=== PATIENT | male | born 1970 | race African-American/Black ===

== ENCOUNTER 2020-12-16 12:16 | Outpatient (CLI) | payer OTHER, SELFPAY ==
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
--- NOTE | ~2020-12-16 | XR_ITS ---
XR lumbar spine 2-3V DATE: 12/16/2020 12:46 INDICATION: Back pain, radiculopathy. TECHNIQUE: AP, lateral, coned lateral lumbosacral views COMPARISON: None FINDINGS: Normal alignment of the lumbar spine. No fracture or bone destruction or spondylolisthesis. The lumbar pedicles are intact. Minimal degenerative spurring and slight loss of height at L2-3 consistent with mild degenerative dis c disease. Minimal degenerative spurring but preservation of intervertebral disc space at L3-4. Mild to moderate loss of interspace height. And mild spurring at L4-5. The sacroiliac joints are intact. IMPRESSION: Moderate to moderate degenerative disc disease Reviewed, dictated and finalized at location A.
--- NOTE | ~2020-12-16 | XR_ITS ---
XR foot RT min 3V DATE: 12/16/2020 12:47 INDICATION: Right foot pain. No injury. TECHNIQUE: 4 views COMPARISON: None FINDINGS: There is mild osteoarthritis at the first metatarsophalangeal joint. No recent fracture or dislocation, periosteal reaction or bone destruction is detected. IMPRESSION: Mild osteoarthritis at first metatarsophalangeal joint Reviewed, dictated and finalized at location A.
[2020-12-16 13:52] LABS: Basophils Percent Auto 0.4 % (0.2-1.2); Eosinophils Absolute Auto 0.2 K/mm3 (0-0.3); Eosinophils Percent Auto 2.8 % (0-4.4); Hematocrit 46.1 % (42.0-52.0); Hemoglobin 15.5 g/dL (14.0-18.0); Immature Granulocyte Absolute 0.01 K/mm3 (0.00-0.031); Immature Granulocyte Percent A 0.2 % (0-0.5); Lymphocytes Absolute Auto 1.88 K/mm3 (0.9-3.2); Lymphocytes Percent Auto 35.5 % (18.3-44.2); Mean Corpuscular HGB Conc 33.6 g/dl (32-36); Mean Corpuscular Volume 95.2 fl (80-100); Mean Platelet Volume 9.1 fl (7.4-10.4); Monocytes Absolute Auto 0.5 K/mm3 (0.1-0.6); Monocytes Percent Auto 9.3 % (2.6-8.5); Neutrophils Absolute Auto 2.7 K/mm3 (1.3-6.7); Neutrophils Percent Auto 51.8 % (45.5-73.1); Platelet Count Result 232 k/mm3 (150-375); Red Blood Count 4.84 M/mm3 (4.6-6.20); Red Cell Distribution Width 16.3 % (11.5-14.5); White Blood Count 5.3 K/mm3 (4.5-10.0)
[2020-12-16 15:11] LABS: Creatinine Urine 189.2 mg/dL
[2020-12-16 15:40] LABS: MALB Creatinine Ratio < 3.2 mg/g (0-30); Microalbumin Urine Random < 6.0 mg/L (0-16.7)
[2020-12-16 17:35] LABS: Alanine Aminotransferase 28 U/L (4-50); Albumin Level 4.8 g/dL (3.5-5.1); Alkaline Phosphatase 58 U/L (38-126); Anion Gap 9 mmol/L (8-16); Aspartate Amino Transferase 28 U/L (17-59); Bilirubin,Total 0.5 mg/dL (0.2-1.3); Blood Urea Nitrogen 14 mg/dL (9-20); Calcium 9.4 mg/dL (8.4-10.2); Carbon Dioxide 24 mmol/L (22-30); Chloride 108 mmol/L (98-107); Cholesterol 285 mg/dL (0-200); Estimated Glomerular Filt Rate > 60; Glucose 94 mg/dL (65-110); HDL Direct 57 mg/dL; Potassium 4.2 mmol/L (3.4-5.0); Sodium 141 mmol/L (137-145); Triglycerides 113 mg/dL (<150)
[2020-12-16 17:48] LABS: LDL Cholesterol Direct 192 mg/dL
[2020-12-16 18:08] LABS: Prostate Specific Antigen 0.4 ng/mL (< OR = 4.0)
== END 2020-12-16 12:17 | disposition home or self-care (01) ==
PROVIDERS: PCP Internal Medicine; Visit Provider Internal Medicine
DX: Z12.5 Encounter for screening for malignant neoplasm of prostate (principal); E04.9 Nontoxic goiter, unspecified; F43.10 Post-traumatic stress disorder, unspecified; M54.16 Radiculopathy, lumbar region; Z87.898 Personal history of other specified conditions; M19.071 Primary osteoarthritis, right ankle and foot; M47.816 Spondylosis without myelopathy or radiculopathy, lumbar region
CPT/HCPCS: 36415; 72072; 72100; 73630; 80053; 80061; 82043; 84153; 84443; 85025; G0103

== ENCOUNTER 2020-12-19 14:54 | Outpatient (CLI) | payer OTHER, SELFPAY ==
[2020-12-19 16:45] LABS: HIV 1/2 Ab P24 Ag Result Negative (Negative)
[2020-12-22 06:59] LABS: Rapid Plasma Reagin Non-Reactive (NonReactive)
[2020-12-22 23:08] LABS: Herpes Simplex Type 1 DNA PCR Not Detected (Not Detected); Herpes Simplex Type 2 DNA PCR Not Detected (Not Detected)
== END 2020-12-19 14:55 | disposition home or self-care (01) ==
LOC: ANHLAB 14:55
PROVIDERS: PCP Internal Medicine; Visit Provider Internal Medicine
DX: Z11.3 Encounter for screening for infections with a predominantly sexual mode of transmission (principal)
CPT/HCPCS: 36415; 86592; 86703; 87529; G0432

== ENCOUNTER 2021-04-07 14:57 | Outpatient (CLI) | payer OTHER, SELFPAY ==
[2021-04-07 15:44] LABS: Cholesterol 309 mg/dL (0-200); HDL Direct 67 mg/dL; Triglycerides 145 mg/dL (<150)
[2021-04-07 15:55] LABS: LDL Cholesterol Direct 219 mg/dL
== END 2021-04-07 14:58 | disposition home or self-care (01) ==
LOC: ANHLAB 14:58
PROVIDERS: PCP Internal Medicine; Visit Provider Internal Medicine
DX: E78.2 Mixed hyperlipidemia (principal)
CPT/HCPCS: 36415; 80061

== ENCOUNTER 2021-07-13 14:35 | Outpatient (CLI) | payer OTHER, SELFPAY ==
[2021-07-13 15:27] LABS: Alanine Aminotransferase 54 U/L (4-50); Albumin Level 4.6 g/dL (3.5-5.1); Alkaline Phosphatase 55 U/L (38-126); Anion Gap 8 mmol/L (8-16); Aspartate Amino Transferase 39 U/L (17-59); Bilirubin,Total 0.7 mg/dL (0.2-1.3); Blood Urea Nitrogen 16 mg/dL (9-20); Calcium 9.5 mg/dL (8.4-10.2); Carbon Dioxide 25 mmol/L (22-30); Chloride 106 mmol/L (98-107); Cholesterol 212 mg/dL (0-200); Estimated Glomerular Filt Rate > 60; Glucose 103 mg/dL (65-110); HDL Direct 63 mg/dL; Potassium 4.2 mmol/L (3.4-5.0); Sodium 139 mmol/L (137-145); Triglycerides 89 mg/dL (<150)
[2021-07-13 15:38] LABS: LDL Cholesterol Direct 104 mg/dL
== END 2021-07-13 14:36 | disposition home or self-care (01) ==
LOC: ANHLAB 14:37
PROVIDERS: PCP Internal Medicine; Visit Provider Internal Medicine
DX: F43.10 Post-traumatic stress disorder, unspecified (principal); E78.2 Mixed hyperlipidemia
CPT/HCPCS: 36415; 80053; 80061

== ENCOUNTER 2022-02-15 16:34 | Outpatient (CLI) | payer OTHER, SELFPAY ==
[2022-02-15 17:53] LABS: Alanine Aminotransferase 43 U/L (6-50); Albumin Level 4.6 g/dL (3.5-5.1); Alkaline Phosphatase 49 U/L (38-126); Anion Gap 9 mmol/L (8-16); Aspartate Amino Transferase 35 U/L (17-59); Bilirubin,Total 0.9 mg/dL (0.2-1.3); Blood Urea Nitrogen 14 mg/dL (9-20); Carbon Dioxide 26 mmol/L (22-30); Chloride 107 mmol/L (98-107); Cholesterol 165 mg/dL (0-200); Estimated Glomerular Filt Rate > 60; Glucose 99 mg/dL (65-110); HDL Direct 46 mg/dL; Potassium 3.7 mmol/L (3.4-5.0); Sodium 142 mmol/L (137-145); Triglycerides 139 mg/dL (<150)
[2022-02-15 18:05] LABS: LDL Cholesterol Direct 79 mg/dL
== END 2022-02-15 16:35 | disposition home or self-care (01) ==
LOC: ANHLAB 16:35
PROVIDERS: PCP Internal Medicine; Visit Provider Nurse Practitioner
DX: E78.5 Hyperlipidemia, unspecified (principal)
CPT/HCPCS: 36415; 80053; 80061

== ENCOUNTER 2023-03-21 16:13 | Outpatient (CLI) | payer OTHER, SELFPAY ==
[2023-03-21 16:37] LABS: Hematocrit 42.3 % (42.0-52.0); Hemoglobin 14.4 g/dL (14.0-18.0); Mean Corpuscular Hemoglobin 31.9 pg (26-34); Mean Corpuscular Volume 93.8 fl (80-100); Mean Platelet Volume 8.7 fl (7.4-10.4); Platelet Count Result 204 k/mm3 (150-375); Red Blood Count 4.51 M/mm3 (4.6-6.20); Red Cell Distribution Width 14.4 % (11.5-14.5); White Blood Count 5.7 K/mm3 (4.5-10.0)
[2023-03-21 16:49] LABS: Alanine Aminotransferase 29 U/L (6-50); Albumin Level 4.3 g/dL (3.5-5.1); Alkaline Phosphatase 46 U/L (38-126); Anion Gap 9 mmol/L (8-16); Aspartate Amino Transferase 27 U/L (17-59); Bilirubin,Total 0.4 mg/dL (0.2-1.3); Blood Urea Nitrogen 16 mg/dL (9-20); Carbon Dioxide 23 mmol/L (22-30); Chloride 110 mmol/L (98-107); Estimated Glomerular Filt Rate > 60; Glucose 103 mg/dL (65-110); Potassium 3.9 mmol/L (3.4-5.0); Sodium 142 mmol/L (137-145)
[2023-03-21 17:19] LABS: Prostate Specific Antigen 0.4 ng/mL (< OR = 4.0)
== END 2023-03-21 16:14 | disposition home or self-care (01) ==
LOC: ANHLAB 16:15
PROVIDERS: PCP Nurse Practitioner Family; Visit Provider Family Medicine
DX: Z00.00 Encounter for general adult medical examination without abnormal findings (principal); E04.9 Nontoxic goiter, unspecified; E66.9 Obesity, unspecified; E78.5 Hyperlipidemia, unspecified; Z72.0 Tobacco use; Z87.898 Personal history of other specified conditions; Z87.09 Personal history of other diseases of the respiratory system
CPT/HCPCS: 36415; 80053; 84153; 84443; 85027; G0103

== ENCOUNTER 2023-04-16 18:08 | Emergency (ER) | payer OTHER, SELFPAY ==
[2023-04-16 18:11] VITALS: BP 151/86; PULSE 69; RESP 16; TEMP 36.8; O2SAT 99
--- NOTE | 2023-04-16 19:11 | PC.NURSE ---
Report given to Pattie PIEDRA, all questions answered
--- NOTE | 2023-04-16 19:19 | PC.NURSE ---
this rn assumed care of patient. this rn took patient report from adam maciel.
--- NOTE | 2023-04-16 19:51 | ED.EYEPROB ---
HPI - Eye Problem General Chief complaint: Eye Problems Stated complaint: eye vs screwdriver Time Seen by Provider: 04/16/23 19:24 Source: patient Mode of arrival: ambulatory Limitations: no limitations History of Present Illness HPI Narrative: This is a 52-year-old male that presents to the Emergency Department after an eye injury sustained this morning. Reports a screwdriver slipped and he hit his left eyelid. Has a small abrasion on the eyelid. He has had redness and mild discomfort to the left eye. Denies visual changes. Related Data Allergies Allergy/AdvReac Type Severity Reaction Status Date / Time No Known Allergies Allergy Verified 04/16/23 18:55 Review of Systems Review of Systems: CONSTITUTIONAL: Denies fever EYES: Reports redness Denies visual changes, or discharge. All systems reviewed & are unremarkable except as noted in HPI and below PMFSH Past Medical History Medical History Arthritis Jaw fracture Surgical History Surgical History History of ankle surgery (~2011) Family History Family History Sibling Hypertension Social History Social History Smoking packs per day: 0.5 Smoking cigarettes per day: 10.0 Years smoked: 20 Smoking pack-years: 10.00 Smoking status: Current every day smoker Second hand tobacco smoke exposure: Yes Alcohol intake: current Drinks per week: 3 Alcohol use details: rum, vodka, whisky social Substance use: never Substance use type: does not use Lack of Transportation: No Lack of Food: Sometimes True Current Housing: I Have Housing Concerned About Future Housing: No Difficulty Paying Gas/Electric Bills: YES Difficulty Paying for Meds: No Currently Unemployed: No Education: Trade/Vocational Certificate Difficulty w/ Childcare or Family Care: No Exam Narrative: GENERAL: Well-appearing, well-nourished, and in no acute distress. HEAD: Normocephalic, atraumatic. EYES: PERRLA and EOMI. Left conjunctival injection. Eyelid everted, no foreign bodies noted. Eye pressures are 10 bilaterally. No fluorescein stain uptake EXTREMITIES: Normal range of motion. No edema. SKIN: Warm, dry, no rash. NEURO: No focal deficits. Alert and oriented x3. PSYCH: Normal mood and affect Course Course Emergency Course: Patient updated on workup and agrees with plan of care Vital Signs Vital signs: Vital Signs Temperature 98.2 F 04/16/23 18:11 Pulse Rate 69 04/16/23 18:11 Respiratory Rate 16 04/16/23 18:11 Blood Pressure 151/86 H 04/16/23 18:11 Pulse Oximetry 99 04/16/23 18:11 Temperature 98.2 F 04/16/23 18:11 Pulse Rate 69 04/16/23 18:11 Respiratory Rate 16 04/16/23 18:11 Blood Pressure 151/86 H 04/16/23 18:11 Pulse Oximetry 99 04/16/23 18:11 MDM - Eye Problem MDM Narrative Medical decision making narrative: Patient presents to the ER after an injury to the left eye this morning. No vision changes. He does have poor vision bilaterally here, he did not have his glasses. His affected eye was actually better than unaffected. No fluorescein stain uptake on exam. His eye pressures are normal. No foreign bodies noted on exam. He does have conjunctival irritation and redness, without obvious abrasion. Will be started on topical antibiotic and was instructed to have close follow up with his eye doctor. He was given warnings to return to the ER Differential Diagnosis Differential diagnosis: Likely corneal abrasion, conjunctivitis and subconjunctival hemorrhage Critical Care Time Critical Care Time Critical Care Time: No Discharge Plan Discharge Clinical Impression: Injury of conjunctiva Qualifiers: Encounter type: initial encounter Laterality: left Qualified Code(s):
== END 2023-04-16 20:06 | disposition home or self-care (01) ==
PROVIDERS: Emergency Provider Physician Assistant; PCP Nurse Practitioner Family
DX: S05.02XA Injury of conjunctiva and corneal abrasion without foreign body, left eye, initial encounter (principal); M19.90 Unspecified osteoarthritis, unspecified site; F17.210 Nicotine dependence, cigarettes, uncomplicated; W27.0XXA Contact with workbench tool, initial encounter
CPT/HCPCS: 99283

== ENCOUNTER 2023-06-16 22:15 | Emergency (ER) | payer OTHER, SELFPAY ==
--- NOTE | ~2023-06-16 | CT_ITS ---
EXAMINATION: CT brain wo con DATE: 06/16/2023 23:36 INDICATION: Dizziness. TECHNIQUE: Computed tomography (CT) of the head was performed without intravenous contrast. The mA wa s adjusted according to patient size. Iterative reconstruction technique was employed. The dose-lengt h product was 605.33 mGy-cm. COMPARISON: None FINDINGS: There is no intracranial hemorrhage, acute infarction, or abnormal intracranial mass lesion . The ventricles are normal in size. There is cavum septum pellucidum and vergae. There is mild mucos al thickening in the paranasal sinuses. The mastoid air cells are normal. IMPRESSION: 1. Normal brain. Reviewed, dictated and finalized at location A. IMPRESSION: 1. Normal brain.
--- NOTE | 2023-06-16 22:21 | ECG_ITS ---
Measurements Intervals Hugo Rate: 64 P: 42 HI: 148 QRS: 3 QRSD: 98 T: 0 QT: 384 QTc: 398 Interpretive Statements SINUS RHYTHM WITH OCCASIONAL VENTRICULAR PREMATURE COMPLEXES NONSPECIFIC T-WAVE ABNORMALITY ABNORMAL ECG NO PREVIOUS ECG AVAILABLE FOR COMPARISON Electronically Signed On 06-17-2023 7:44:09 CDT by Humberto Drake M.D.
[2023-06-16 22:29] VITALS: BP 134/96; PULSE 67; RESP 15; O2SAT 100
[2023-06-16 22:36] LABS: Basophils Percent Auto 0.4 % (0.2-1.2); Eosinophils Absolute Auto 0.1 K/mm3 (0-0.3); Eosinophils Percent Auto 1.2 % (0-4.4); Hematocrit 46.1 % (42.0-52.0); Hemoglobin 15.3 g/dL (14.0-18.0); Immature Granulocyte Absolute 0.01 K/mm3 (0.00-0.031); Immature Granulocyte Percent A 0.2 % (0-0.5); Lymphocytes Absolute Auto 1.93 K/mm3 (0.9-3.2); Lymphocytes Percent Auto 34.2 % (18.3-44.2); Mean Corpuscular HGB Conc 33.2 g/dl (32-36); Mean Corpuscular Hemoglobin 31.2 pg (26-34); Mean Corpuscular Volume 93.9 fl (80-100); Mean Platelet Volume 9.1 fl (7.4-10.4); Monocytes Absolute Auto 0.6 K/mm3 (0.1-0.6); Monocytes Percent Auto 10.3 % (2.6-8.5); Neutrophils Percent Auto 53.7 % (45.5-73.1); Platelet Count Result 233 k/mm3 (150-375); Red Blood Count 4.91 M/mm3 (4.6-6.20); Red Cell Distribution Width 14.6 % (11.5-14.5); White Blood Count 5.7 K/mm3 (4.5-10.0)
[2023-06-16 22:50] LABS: Alanine Aminotransferase 30 U/L (6-50); Albumin Level 4.8 g/dL (3.5-5.1); Alkaline Phosphatase 46 U/L (38-126); Anion Gap 9 mmol/L (4-12); Aspartate Amino Transferase 27 U/L (17-59); Bilirubin,Total 0.8 mg/dL (0.2-1.3); Blood Urea Nitrogen 15 mg/dL (9-20); Carbon Dioxide 24 mmol/L (22-30); Chloride 106 mmol/L (98-107); Estimated CRCL calculation 90 ml/min; Estimated Glomerular Filt Rate > 60; Glucose 146 mg/dL (65-110); Potassium 3.5 mmol/L (3.4-5.0); Sodium 139 mmol/L (137-145)
--- NOTE | 2023-06-16 23:10 | ED.DIZZY ---
HPI - Dizziness General Chief Complaint: Dizziness Stated Complaint: dizzy Time Seen by Provider: 06/16/23 22:55 History of Present Illness HPI Narrative: Patient is a 53-year-old male who presents to the emergency department this evening complaining of dizziness. Patient denies any room spinning sensation but states that he feels lightheaded as if he was going to pass. Patient states symptoms started approximately 2 days ago and he denies any similar symptoms in the past. He denies any associated symptoms including headaches, focal weakness, numbness and O2. Patient is also denying any chest pain or shortness of breath, any nausea, vomiting, or abdominal pain, and denies any urinary symptoms including dysuria or hematuria. Patient denies any fevers or chills at home or any exposure to sick contacts. Patient states that he did recently started a new medication for blood pressure, amlodipine approximately 4 weeks ago and patient states that while taking that medication his blood pressure has been averaging 90s over 60s. Patient stopped taking his blood pressure medication yesterday for Otherwise he denies any recent life changes. Patient states that in the last 2 days he has also noticed that his heart rate has been running lower than usual. Ranging anywhere from 55-65 which is unusual for him because his heart rate is normally in the 70s. He denies any previous history of arrhythmias or any cardiovascular disease. Patient is currently denying any additional symptoms at this time. There are no other modifying, alleviating, or precipitating factors. Related Data Allergies Allergy/AdvReac Type Severity Reaction Status Date / Time No Known Allergies Allergy Verified 04/16/23 18:55 Review of Systems Review of Systems: All systems are reviewed and are negative unless stated otherwise in the HPI. [facility], [facility] Past Medical History Medical History Arthritis Jaw fracture Surgical History Surgical History History of ankle surgery (~2011) Family History Family History Sibling Hypertension Social History Social History Smoking packs per day: 0.5 Smoking cigarettes per day: 10.0 Years smoked: 20 Smoking pack-years: 10.00 Smoking status: Current every day smoker Second hand tobacco smoke exposure: Yes Alcohol intake: current Drinks per week: 3 Alcohol use details: rum, vodka, whisky social Substance use: never Substance use type: does not use Lack of Transportation: No Lack of Food: Sometimes True Current Housing: I Have Housing Concerned About Future Housing: No Difficulty Paying Gas/Electric Bills: YES Difficulty Paying for Meds: No Currently Unemployed: No Education: Trade/Vocational Certificate Difficulty w/ Childcare or Family Care: No Exam Narrative: General: Alert, awake, afebrile, in no acute distress. HEENT: PERRL, no rhinorrhea, no post nasal drip, oropharynx clear. Neck: Trachea midline, no JVD, no lymphadenopathy. Cardiovascular: Regular rate and rhythm, no murmurs, rubs or gallops, no peripheral edema. Respiratory: Clear to auscultation bilaterally, no tachypnea, no wheezing, no rhonchi, no rubs, no respiratory distress. Abdomen: Soft, nontender, nondistended, no rebound, no guarding, no peritoneal signs. Musculoskeletal: No joint swelling or deformity, normal muscle tone. Skin: No rashes or petechia, no signs of infection. Psychiatric: Alert and oriented, normal behavior and judgment for situation. Neurological: Alert and oriented to person, place, and time. Follows all commands. No focal deficits, speech is clear and fluent. Course Vital Signs Vital signs: Vital Signs Pulse Rate 67 06/16/23 22:29 Respiratory Rate 15 06/16/23 22:29 Bloo
[2023-06-16] MEDS: SODIUM CHLORIDE 0.9% IV 1,000 ML 999 ML IV CONT (23:17)
[2023-06-16 23:40] LABS: Troponin I < 0.012 ng/mL (0.000-0.034)
[2023-06-17 00:06] LABS: Influenza A QL RT-PCR Negative (Negative); Influenza B QL RT-PCR Negative (Negative); RSV RNA, RT-PCR Negative (Negative); SARS-CoV-2 RNA PCR Negative (Negative)
[2023-06-17 00:43] VITALS: BP 120/83; PULSE 62; RESP 14; O2SAT 100
== END 2023-06-17 01:17 | disposition home or self-care (01) ==
PROVIDERS: Emergency Provider Emergency Medicine; PCP Nurse Practitioner Family
DX: R55 Syncope and collapse (principal); Z20.822 Contact with and (suspected) exposure to COVID-19; M19.90 Unspecified osteoarthritis, unspecified site; F17.210 Nicotine dependence, cigarettes, uncomplicated; I49.3 Ventricular premature depolarization
CPT/HCPCS: 36415; 70450; 80053; 84484; 85025; 87637; 93005; 96360; 99284; J7030

== ENCOUNTER 2023-07-21 15:36 | Outpatient (CLI) | payer OTHER, SELFPAY ==
[2023-07-21 16:20] LABS: Cholesterol 266 mg/dL (0-200); HDL Direct 62 mg/dL; Triglycerides 159 mg/dL (<150)
[2023-07-21 16:30] LABS: LDL Cholesterol Direct 173 mg/dL
[2023-07-21 18:58] LABS: Hemoglobin A1C 5.5 % (<5.7)
== END 2023-07-21 15:37 | disposition home or self-care (01) ==
LOC: ANHLAB 15:36
PROVIDERS: PCP Nurse Practitioner Family; Visit Provider Nurse Practitioner Family
DX: E78.5 Hyperlipidemia, unspecified (principal); I10 Essential (primary) hypertension; E66.9 Obesity, unspecified; R73.01 Impaired fasting glucose
CPT/HCPCS: 36415; 80061; 83036

== ENCOUNTER 2023-08-13 20:29 | Emergency (ER) | payer OTHER, SELFPAY ==
[2023-08-13 20:36] VITALS: BP 143/105; PULSE 78; RESP 18; TEMP 36.8; O2SAT 100
--- NOTE | 2023-08-13 20:50 | ED.SKABFB ---
HPI - Skin/Abscess/Foreign Bdy General Chief complaint: Skin/Abscess/Foreign Body Stated complaint: abcess on groin Time Seen by Provider: 08/13/23 20:43 Source: patient Mode of arrival: ambulatory Limitations: no limitations History of Present Illness HPI narrative: Andrew is a 53-year-old male patient presenting to the ER today with complaints of possible abscess to the left groin. He reports that this has been going on for 1-2 days. Has expressed some brown discharge from the area. States he had this once before and it drained and went away. He denies any fever, chills, or body aches. Related Data Allergies Allergy/AdvReac Type Severity Reaction Status Date / Time No Known Allergies Allergy Verified 08/13/23 20:56 Review of Systems Review of Systems: Pertinent positives per HPI. Patient denies any fever, chills, rash, headache, visual changes, dizziness, cough, runny nose, sore throat, shortness of breath, chest pain, palpitations, nausea, vomiting, diarrhea, constipation, abdominal pain, or any urinary issues. [facility] Past Medical History Medical History Arthritis Jaw fracture Surgical History Surgical History History of ankle surgery (~2011) Family History Family History Sibling Hypertension Social History Social History Smoking packs per day: 0.5 Smoking cigarettes per day: 10.0 Years smoked: 20 Smoking pack-years: 10.00 Smoking status: Current every day smoker Second hand tobacco smoke exposure: Yes Alcohol intake: current Drinks per week: 3 Alcohol use details: rum, vodka, whisky social Substance use: never Substance use type: does not use Lack of Transportation: No Lack of Food: Sometimes True Current Housing: I Have Housing Concerned About Future Housing: No Difficulty Paying Gas/Electric Bills: YES Difficulty Paying for Meds: No Currently Unemployed: No Education: Trade/Vocational Certificate Difficulty w/ Childcare or Family Care: No Comments At the time of my signature, I reviewed and agree with the nursing past medical, surgical, social, and family history. There is no relevant family history pertinent to the patient complaint. Exam Narrative: General: Well-developed, well nourished, in no apparent distress Head: Normocephalic, atraumatic. Cardio: Regular rate and rhythm, s1 and s2 normal, no murmur appreciated. Resp: Clear to auscultation bilaterally, no rhonchi, rales, wheezing or rubs. Integumentary: [place], warm, and dry, 1 cm by half a cm indurated lump that straining some brown bloody discharge to the left groin. Course Course Emergency Course: Portions of this record may have been created with voice recognition software. Vital Signs Vital signs: Vital Signs Temperature 36.8 C 08/13/23 20:36 Pulse Rate 78 08/13/23 20:36 Respiratory Rate 18 08/13/23 20:36 Blood Pressure 143/105 H 08/13/23 20:36 Pulse Oximetry 100 08/13/23 20:36 Oxygen Delivery Room Air 08/13/23 20:36 Temperature 36.8 C 08/13/23 20:36 Pulse Rate 78 08/13/23 20:36 Respiratory Rate 18 08/13/23 20:36 Blood Pressure 143/105 H 08/13/23 20:36 Pulse Oximetry 100 08/13/23 20:36 Oxygen Delivery Room Air 08/13/23 20:36 Vital signs reviewed MDM - Skin/Abscess/Foreign Bdy MDM Narrative Medical decision making narrative: At the time of visit patient is resting comfortably on the exam table. Patient appears to be nontoxic. Labs: Wound culture was obtained sent to the lab Plan: I suspect patient has a cyst verses a abscess to the left groin. Prescription for clindamycin was sent to the pharmacy. Supportive measures were discussed with the patient and they voiced understanding discharge in
[2023-08-13 21:15] VITALS: BP 176/104; PULSE 75; RESP 18; TEMP 36.7; O2SAT 100
== END 2023-08-13 21:21 | disposition home or self-care (01) ==
LOC: ANHED 21:00
PROVIDERS: Emergency Provider Nurse Practitioner Family; PCP Nurse Practitioner Family
DX: L02.214 Cutaneous abscess of groin (principal); F17.210 Nicotine dependence, cigarettes, uncomplicated; M19.90 Unspecified osteoarthritis, unspecified site
CPT/HCPCS: 99283

== ENCOUNTER 2023-09-21 15:01 | Outpatient (CLI) | payer OTHER, SELFPAY ==
[2023-09-21 15:47] LABS: Alanine Aminotransferase 37 U/L (6-50); Albumin Level 4.7 g/dL (3.5-5.1); Alkaline Phosphatase 50 U/L (38-126); Anion Gap 11 mmol/L (4-12); Aspartate Amino Transferase 37 U/L (17-59); Bilirubin,Total 0.6 mg/dL (0.2-1.3); Blood Urea Nitrogen 14 mg/dL (9-20); Calcium 9.1 mg/dL (8.4-10.2); Carbon Dioxide 23 mmol/L (22-30); Chloride 107 mmol/L (98-107); Estimated Glomerular Filt Rate > 60; Glucose 96 mg/dL (65-110); Potassium 4.3 mmol/L (3.4-5.0); Sodium 141 mmol/L (137-145)
[2023-09-21 16:33] LABS: Creatinine Urine 288.3 mg/dL
[2023-09-21 16:37] LABS: MALB Creatinine Ratio 3.7 mg/g (0-30); Microalbumin Urine Random 10.6 mg/L (0-16.7)
[2023-09-21 17:35] LABS: Hemoglobin A1C 5.8 % (<5.7)
== END 2023-09-21 15:02 | disposition home or self-care (01) ==
LOC: ANHLAB 15:02
PROVIDERS: PCP Nurse Practitioner Family; Visit Provider Nurse Practitioner Family
DX: R73.01 Impaired fasting glucose (principal); I10 Essential (primary) hypertension
CPT/HCPCS: 36415; 80053; 82043; 83036

== ENCOUNTER 2024-04-10 14:27 | Outpatient (CLI) | payer OTHER, SELFPAY ==
--- NOTE | ~2024-04-10 | XR_ITS ---
EXAMINATION: XR ankle RT min 3V DATE: 04/10/2024 14:50 INDICATION: Pain in unspecified ankle and joints of unspecified foot. TECHNIQUE: 4 views of right ankle were obtained. COMPARISON: None. FINDINGS: Alignment is normal. No fracture. There is mild osteoarthritis of talonavicular joint. IMPRESSION: 1. Mild osteoarthritis of talonavicular joint. Reviewed, dictated and finalized at location A. [employer]
--- NOTE | ~2024-04-10 | XR_ITS ---
EXAMINATION: XR shoulder RT min 2V DATE: 04/10/2024 14:50 INDICATION: Right shoulder pain. TECHNIQUE: 4 views of right shoulder were obtained. COMPARISON: None. FINDINGS: There is widening of acromioclavicular joint. No acute fracture. There is well-corticated h eterotopic ossification around the distal clavicle and in the area of coracoclavicular ligament. Aileen coclavicular interval is normal. The glenohumeral joint is normal. IMPRESSION: 1. Old acromioclavicular separation. Reviewed, dictated and finalized at location A. DER OPERATOR
--- NOTE | ~2024-04-10 | XR_ITS ---
EXAMINATION: XR foot LT min 3V DATE: 04/10/2024 14:50 INDICATION: Pain in unspecified ankle and joints of unspecified foot. TECHNIQUE: 4 views of left foot were obtained. COMPARISON: None. FINDINGS: Alignment is normal. No acute fracture. There is plate-screw fixation of distal tibia and f ibula. There is mild osteoarthritis of some of the midfoot joints and interphalangeal joints. IMPRESSION: 1. Mild polyarticular osteoarthritis. Reviewed, dictated and finalized at location A. [facility]
--- NOTE | ~2024-04-10 | XR_ITS ---
EXAMINATION: XR foot RT min 3V DATE: 04/10/2024 14:50 INDICATION: Pain in unspecified ankle and joints of unspecified foot. TECHNIQUE: 4 views of right foot were obtained. COMPARISON: None. FINDINGS: There is mild hallux valgus. No fracture. There is mild osteoarthritis of talonavicular tiana nt. IMPRESSION: 1. Mild hallux valgus. 2. Mild osteoarthritis of talonavicular joint. Reviewed, dictated and finalized at location A. ORK PROGRAM MANAGER
--- NOTE | ~2024-04-10 | XR_ITS ---
EXAMINATION: XR finger 1st LT min 2V DATE: 04/10/2024 14:50 INDICATION: Left thumb edema, unspecified. TECHNIQUE: 3 views of left thumb were obtained. COMPARISON: None. FINDINGS: Alignment is normal. No fracture. There is mild osteoarthritis of first carpometacarpal tiana nt and first metacarpophalangeal joint. IMPRESSION: 1. Mild polyarticular osteoarthritis. Reviewed, dictated and finalized at location A. H CUTTING INSPECTOR
--- NOTE | ~2024-04-10 | XR_ITS ---
EXAMINATION: XR ankle LT min 3V DATE: 04/10/2024 14:50 INDICATION: Pain in unspecified ankle and joints of unspecified foot. TECHNIQUE: 3 views of left ankle were obtained. COMPARISON: None. FINDINGS: Alignment is normal. No acute fracture. There is an old healed fracture of fibula with plat e and screws. There is an old healed fracture of tibia with multiple plates and screws. There is mild midfoot osteoarthritis. There is moderate posttraumatic ankle joint osteoarthritis. IMPRESSION: 1. Polyarticular osteoarthritis. Reviewed, dictated and finalized at location A. RAL RESOURCE MANAGER
--- OUTSIDE RECORDS SUMMARY | 2024-04-10 15:02 | XMS_ITS | Continuity of Care Document ---
Author Organization [facility] Address [address] [facility] [place] [address] Phone Care Team Providers Care Metal Stud Framer Name Role Phone Alvino Dominguez MD Unavailable Unavailable Advance Directives Directive Yes / No Effective Date File Name No Information Encounters Encounter Description Practice Location Reason(s) For Visit Diagnoses Date Provider Providers Copied on Encounter [facility], [address] [facility] [place], [place], [id number], [place] tel:[phone] [facility] No Information Alberto De Oliveira. [address] [place], [place], [id number], [place]. tel:[phone] Family History Family Member Type Diagnosis Age At Onset No Information Payers Payer name Insurance type Covered republican ID Authoriza tion(s) No Information Social History [...]
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
== END 2024-04-10 14:28 | disposition home or self-care (01) ==
PROVIDERS: PCP Nurse Practitioner Family; Visit Provider Nurse Practitioner Family
DX: M19.072 Primary osteoarthritis, left ankle and foot (principal); M19.071 Primary osteoarthritis, right ankle and foot; M18.12 Unilateral primary osteoarthritis of first carpometacarpal joint, left hand; M20.11 Hallux valgus (acquired), right foot; Z87.828 Personal history of other (healed) physical injury and trauma
CPT/HCPCS: 73030; 73140; 73610; 73630

== ENCOUNTER 2024-11-06 16:02 | Outpatient (CLI) | payer OTHER, SELFPAY ==
--- OUTSIDE RECORDS SUMMARY | 2015-05-25 19:00 | XMS_ITS | Continuity of Care Document ---
Author Organization [facility] Address [address] [place] [address] Phone Care Team Providers Care Commercial Light Fixture Assembler Name Role Phone Alvino Dominguez MD Unavailable Unavailable Advance Directives Directive Yes / No Effective Date File Name No Information Encounters Encounter Description Practice Location Reason(s) For Visit Diagnoses Date Provider Providers Copied on Encounter [facility], [address] [facility] [place], [id number], [place] tel:[phone] [facility] No Information Alberto De Oliveira. [address] [place], [place], [id number], [place]. tel:[phone] Family History Family Member Type Diagnosis Age At Onset No Information Payers Payer name Insurance type Covered libertarian ID Authoriza tion(s) No Information Social History Type Description Quantity Date Captured Comments Sex Male Smoking Status No Information Chief Complaint And Reason For Visit No Information Plan Of Treatment Date Type Action Status No Information History Of Present Illness Encounter Date Complaint History Of Prese nt Illness No Information Instructions Date Instruction Additional Infor mation No Information Assessments Type Assessment Date No Information
--- OUTSIDE RECORDS SUMMARY | 2024-11-06 16:08 | XMS_ITS | Clinical Summary ---
Author Organization [facility] Address [address] [place] [phone] Phone Care Team Providers Care Percussion Instructor Name Role Phone Unavailable Primary Care Provider [...] 99 12/31/2017 4:00 PM CDT Temperature 36.7 C (98 F) 12/31/2017 4:00 PM CDT Respiratory Rate 16 12/31/2017 4:00 PM CDT Oxygen Saturation 100% 12/31/2017 4:00 PM CDT Inhaled Oxygen Concentration - - Weight 94.3 kg (207 lb 12.8 oz) 12/23/2017 1:42 AM CDT Height 177.8 cm (5' 10) 12/26/2017 8:11 PM CDT Body Mass Index 29.82 12/23/2017 1:42 AM CDT Plan of Treatment Health Maintenance Due Date Last Done Comments DTAP/TDAP/TD VACCINES (1 - Tdap) 1991 HEPATITIS B VACCINES (1 of 3 - 19+ 3-dose series) 04/14 COLORECTAL SCREENING 2017 Colorectal Cancer Screening 2017 FIT-DNA Q 3 years 2017 FIT/FOBT Q 1 year 2017 Flex Sig/CT Colonography Q 5 years 2017 ZOSTER VACCINE (1 of 2) 2022 INFLUENZA VACCINE (#1) 2024 Insurance [employer] [employer] RX [facility] [employer] RX [employer] PL[employer] (INTERNAL) [facility] Internal Plans Advance Directives For more information, please contact: [phone] * Full Code (Latest Code Status on File) Date Activated Date Inactivated Comments 12/23/2017 2:56 AM 12/31/2017 7:19 PM
[2024-11-06 16:55] LABS: Alanine Aminotransferase 24 U/L (6-50); Albumin Level 4.5 g/dL (3.5-5.1); Alkaline Phosphatase 49 U/L (38-126); Anion Gap 7 mmol/L (4-12); Aspartate Amino Transferase 29 U/L (17-59); Bilirubin,Total 0.9 mg/dL (0.2-1.3); Blood Urea Nitrogen 15 mg/dL (9-20); Calcium 9.4 mg/dL (8.4-10.2); Carbon Dioxide 25 mmol/L (22-30); Chloride 105 mmol/L (98-107); Cholesterol 193 mg/dL (0-200); Estimated Glomerular Filt Rate > 60; Glucose 94 mg/dL (65-110); HDL Direct 64 mg/dL; Potassium 4.1 mmol/L (3.4-5.0); Sodium 137 mmol/L (137-145); Total Protein 7.6 g/dL (6.3-8.2); Triglycerides 63 mg/dL (<150)
[2024-11-06 17:20] LABS: Hemoglobin A1C 5.6 % (<5.7)
== END 2024-11-06 16:03 | disposition home or self-care (01) ==
LOC: ANHLAB 16:06
PROVIDERS: PCP Nurse Practitioner Family; Visit Provider Nurse Practitioner Family
DX: E78.5 Hyperlipidemia, unspecified (principal); I10 Essential (primary) hypertension; R73.03 Prediabetes; Z72.89 Other problems related to lifestyle
CPT/HCPCS: 36415; 80053; 80061; 83036